=== PATIENT | male | born 1950 | race Caucasian/White ===

== ENCOUNTER 2017-05-28 01:17 | Emergency (ER) | payer MEDICARE ==
[2017-05-28] MEDS ORDERED: cloNIDine 0.1 MG TAB ONE (01:46)
== END 2017-05-28 02:20 | disposition home or self-care (01) ==
LOC: MADERS 01:17
DX: I10 Essential (primary) hypertension (principal); E66.9 Obesity, unspecified; E11.9 Type 2 diabetes mellitus without complications; E78.5 Hyperlipidemia, unspecified; Z79.4 Long term (current) use of insulin; Z79.82 Long term (current) use of aspirin; Z79.899 Other long term (current) drug therapy
CPT/HCPCS: 99283

== ENCOUNTER 2017-06-23 23:13 | Emergency (ER) | payer MEDICARE | END 2017-06-23 23:53 | disposition home or self-care (01) | LOC: MADERS 23:13 | DX: I10 Essential (primary) hypertension (principal); I49.9 Cardiac arrhythmia, unspecified; E11.9 Type 2 diabetes mellitus without complications; E78.5 Hyperlipidemia, unspecified; Z79.4 Long term (current) use of insulin; Z79.899 Other long term (current) drug therapy; Z79.82 Long term (current) use of aspirin | CPT/HCPCS: 99283 ==

== ENCOUNTER 2019-02-26 17:02 | Emergency (ER) | payer MEDICARE ==
--- NOTE | 2019-02-26 18:17 | RAD ---
CHEST TWO VIEWS: HISTORY: Fluid on lungs. COMPARISON: Real-time from 11/30/2018. FINDINGS: Heart size is mildly enlarged. Low grade edema. No pneumothorax. Small effusions. IMPRESSION: Findings of mildly decompensated congestive heart failure. POS: HOME
[2019-02-26 18:20] LABS: Band 6 % (5-11); Eosinophils 2 % (0-10); Hemoglobin 12.9 g/dL (14.0-18.0); Lymphocytes 16 % (21-51); MDiff Complete? YES; Mean Corpuscular HGB CONC 30.7 g/dL (32.0-36.0); Mean Corpuscular Hemoglobin 26.2 pg (27.0-31.0); Mean Corpuscular Volume 85.4 fL (78.0-98.0); Mean Platelet Volume 11.8 fL (7.4-10.4); Monocytes 6 % (0-10); Neutrophil 69 % (42-75); Platelet Count 165 thou/uL (130-400); Platelet Morphology Comment Appears Adequate; RBC Distribution Width 13.8 % (11.5-14.5); Red Blood Cell (RBC) Count 4.92 mill/uL (4.70-6.10); White Blood Cell (WBC) Count 9.2 thou/uL (4.8-10.8)
[2019-02-26 18:24] LABS: ALT (SGPT) 23 U/L (8-55); AST (SGOT) 16 U/L (5-34); Albumin 3.9 g/dL (3.4-4.8); Alkaline Phosphatase 84 U/L (40-110); Anion Gap 15 mmol/L (10-20); BUN (Urea Nitrogen) 15 mg/dL (8.4-25.7); Bilirubin, Total 0.4 mg/dL (0.2-1.2); Calc. Creatinine Clearance 0 mL/min (70-130); Carbon Dioxide 29 mmol/L (23-31); Chloride 100 mmol/L (98-107); Estimated GFR-MDRD 80; Glucose 224 mg/dL (80-115); Potassium 3.7 mmol/L (3.5-5.1); Protein, Total 6.9 g/dL (5.8-8.1); Sodium 140 mmol/L (136-145)
== END 2019-02-26 19:54 | disposition short-term general hospital (02) ==
LOC: MADERS 17:02
DX: J81.0 Acute pulmonary edema (principal); I49.9 Cardiac arrhythmia, unspecified; E11.9 Type 2 diabetes mellitus without complications; E78.5 Hyperlipidemia, unspecified; E78.00 Pure hypercholesterolemia, unspecified; I10 Essential (primary) hypertension; Z79.899 Other long term (current) drug therapy; Z79.4 Long term (current) use of insulin; Z79.82 Long term (current) use of aspirin
CPT/HCPCS: 71046; 80053; 83880; 84484; 85025; 93005; 94760

== ENCOUNTER 2019-06-11 22:27 | Emergency (ER) | payer MEDICARE ==
[2019-06-11] MEDS ORDERED: Cephalexin 500 MG CAP ONE (23:23)
[2019-06-11] MEDS ORDERED: Sulfameth/Trimethoprim DS 800-160mg TAB ONE (23:23)
== END 2019-06-11 23:40 | disposition home or self-care (01) ==
LOC: MADERS 22:27
DX: L02.411 Cutaneous abscess of right axilla (principal); I25.2 Old myocardial infarction; I48.91 Unspecified atrial fibrillation; E11.9 Type 2 diabetes mellitus without complications; E78.5 Hyperlipidemia, unspecified; E78.00 Pure hypercholesterolemia, unspecified; I10 Essential (primary) hypertension; I49.9 Cardiac arrhythmia, unspecified; Z79.4 Long term (current) use of insulin; Z79.899 Other long term (current) drug therapy; Z79.82 Long term (current) use of aspirin
CPT/HCPCS: 99282

== ENCOUNTER 2020-05-02 16:17 | Emergency (ER) | payer OTHER, MEDICARE ==
--- NOTE | 2020-05-02 17:43 | RAD ---
Exam:Right foot 3 views HISTORY: Trauma. Pain while walking. COMPARISON: None FINDINGS: Lisfranc alignment appears be maintained. No obvious fracture. There are degenerative valdez es involving the alignment of the second, third and fourth metatarsal with respect to the middle and lateral cuneiform. Obvious fracture is not appreciated. However, limited evaluation of the articu lation of the mid foot on the AP and oblique projection. There does appear to be soft tissue swelling. If there is pain or point tenderness, CT. Minimal atherosclerosis is identified Chronic changes involving the calcaneus. IMPRESSION: Limited evaluation of the midfoot, specifically the articulation of the second through fo urth metatarsals with the associated cuneiform bones. Further evaluation with CT is recommended if clinically warranted.
--- NOTE | 2020-05-02 18:35 | CT ---
CT RIGHT FOOT: 05/02/20 PROVIDED CLINICAL HISTORY: Right foot pain. FINDINGS: Evaluation is mildly limited by patient motion in the region of the Lisfranc articulation. There is n o evidence for fracture or dislocation. Degenerative changes are seen. Prominent vascular calcificati ons are noted. Alignment appears anatomic. Joint spaces appear preserved. There is nonspecific, nonci rcumscribed fluid density within the subcutaneous adipose layer about the visualized distal foreleg a nd dorsum of the foot. Correlate with concerns for cellulitis. IMPRESSION: No evidence for fracture. POS: [facility]
== END 2020-05-02 19:00 | disposition home or self-care (01) ==
LOC: MADERS 16:17
DX: S93.601A Unspecified sprain of right foot, initial encounter (principal); I25.2 Old myocardial infarction; E11.9 Type 2 diabetes mellitus without complications; E78.5 Hyperlipidemia, unspecified; E78.00 Pure hypercholesterolemia, unspecified; I10 Essential (primary) hypertension; Z79.4 Long term (current) use of insulin; Z79.899 Other long term (current) drug therapy; X58.XXXA Exposure to other specified factors, initial encounter

== ENCOUNTER 2024-07-12 14:26 | Inpatient (IN) | payer MEDICARE ==
[2024-07-12] MEDS ORDERED: Gabapentin 300 MG CAP PO PRN (22:58)
[2024-07-12] MEDS ORDERED: Phenol 177 ML BOT PO PRN (22:58)
[2024-07-12] MEDS ORDERED: Cyclobenzaprine 10 MG TAB PO PRN (22:58)
[2024-07-12] MEDS ORDERED: Glucagon 1 MG/ML KIT IM PRN ×2 (23:07→23:08)
[2024-07-12] MEDS ORDERED: Dextrose 50% Abboject 50 ML SYRINGE SLOW IVP PRN ×2 (23:07→23:08)
[2024-07-13] MEDS ORDERED: Loratadine 10 MG TAB PO PRN (00:29)
[2024-07-13] MEDS ORDERED: Albuterol 200 PUFF (6.7GM INHALER) INH PRN (00:33)
[2024-07-13] MEDS ORDERED: Fluticasone Propionate Nasal Spray 16 gm Bottle NASAL PRN (00:35)
[2024-07-13 01:04] VITALS: BMI 38.1
[2024-07-13] MEDS: Aspirin 81 mg Enteric Coated Tablet PO SCH (08:38)
[2024-07-13] MEDS: Spironolactone 25 MG TAB PO SCH (08:38)
[2024-07-13] MEDS: Empagliflozin 25 MG TAB PO SCH (08:39)
[2024-07-13] MEDS: Cholecalciferol 1,000 UNITS (25 MCG) TAB PO SCH (08:39)
[2024-07-13] MEDS: Carvedilol 6.25 MG TAB PO SCH (08:39)
[2024-07-13] MEDS: Ferrous Sulfate 325 MG TAB PO SCH (08:40)
[2024-07-13] MEDS: metFORMIN 500 MG TAB PO SCH (08:40)
[2024-07-13] MEDS: Tamsulosin HCl 0.4 MG CAP PO SCH (08:40)
[2024-07-13] MEDS: Amoxicillin/Potassium Clav 875 MG TAB PO SCH (08:40)
[2024-07-13] MEDS: Amiodarone 200 MG TAB PO SCH (08:41)
[2024-07-13] MEDS: Amlodipine 5 MG TAB PO SCH (08:41)
[2024-07-13] MEDS: Furosemide 40 MG TAB PO SCH (08:42)
[2024-07-13] MEDS: Cyanocobalamin (Vitamin B-12) 1,000 MCG TAB PO SCH (08:42)
[2024-07-13] MEDS: FLU (Fluad Triv) TS24-25 (65UP)/MF59C/PF 45 MCG/0.5 ML Syringe IM ONE (08:42)
[2024-07-13] MEDS: Lantus 1000 UNITS/10 ML VIAL SC SCH (08:43)
[2024-07-13] MEDS: Timolol 0.5% Ophth Soln 5 ml Bottle EA EYE SCH (08:46)
[2024-07-13] MEDS: Multivitamin W/ Minerals 1 TAB PO SCH (08:46)
[2024-07-13] MEDS: Potassium Chloride 10 MEQ TAB PO SCH (08:46)
[2024-07-13] MEDS: Insulin Regular, Human 100 UNIT/ML 10 ML VIAL SC PRN (08:47)
[2024-07-13] MEDS: Acetaminophen/Codeine 30-300mg Tablet PO PRN (19:52)
[2024-07-13] MEDS: Atorvastatin Calcium 40 MG TAB PO SCH (19:59)
[2024-07-13] MEDS: Magnesium Oxide 400 MG TAB PO SCH (20:00)
[2024-07-13] MEDS: Latanoprost 0.005% Ophth Soln 2.5 ml Bottle EA EYE SCH (21:08)
[2024-07-14] MEDS: Spironolactone 25 MG TAB PO SCH (15:22)
[2024-07-14] MEDS: Carvedilol 6.25 MG TAB PO SCH (20:55)
[2024-07-15] MEDS: Amlodipine 5 MG TAB PO SCH (08:46)
[2024-07-15] MEDS: Spironolactone 25 MG TAB PO SCH (08:47)
[2024-07-15] MEDS: Apixaban 5 MG TAB PO SCH (08:58)
[2024-07-15 09:26] LABS: #Basophils 0.1 thou/uL (0.0-0.2); #Eosinophils 0.2 thou/uL (0.0-0.7); #Lymphocytes 0.7 thou/uL (1.20-3.40); #Monocytes 0.4 thou/uL (0.11-0.59); #Neutrophils 6.1 thou/uL (1.40-6.50); %Basophils 0.8 % (0.0-1.0); %Eosinophils 2.7 % (0.0-10.0); %Lymphocytes 9.5 % (21.0-51.0); %Monocytes 5.5 % (0.0-10.0); %Neutrophils 81.5 % (42.0-75.0); Hematocrit 25.5 % (42.0-52.0); Hemoglobin 8.3 g/dL (14.0-18.0); Mean Corpuscular HGB CONC 32.5 g/dL (32.0-36.0); Mean Corpuscular Volume 92.4 fl (78.0-98.0); Mean Platelet Volume 7.8 fL (7.4-10.4); Platelet Count 282 10x3/uL (130-400); Red Blood Cell (RBC) Count 2.76 mill/uL (4.70-6.10); White Blood Cell (WBC) Count 7.5 10x3/uL (4.8-10.8)
[2024-07-15 09:36] LABS: Anion Gap 18 mmol/L (10-20); BUN (Urea Nitrogen) 36 mg/dL (8.4-25.7); Calc. Creatinine Clearance 100 mL/min (70-130); Calcium 9.4 mg/dL (7.8-10.44); Carbon Dioxide 25 mmol/L (23-31); Chloride 94 mmol/L (98-107); Estimated GFR 61; Glucose 190 mg/dL (83-110); Potassium 4.4 mmol/L (3.5-5.1); Sodium 133 mmol/L (136-145)
[2024-07-15] MEDS ORDERED: Lantiseptic Ointment 130 GM JAR TOP PRN ×2 (16:38→21:00)
[2024-07-15] MEDS ORDERED: Simethicone Chewable 80 MG TAB PO PRN (20:23)
[2024-07-15] MEDS: Insulin Regular, Human 100 UNIT/ML 10 ML VIAL SC PRN (20:56)
[2024-07-15] MEDS: Lantiseptic Ointment 130 GM JAR TOP SCH (21:09)
[2024-07-16] MEDS: Acetaminophen ER (8hr) 650 MG TAB PO PRN (21:27)
[2024-07-17] MEDS: Cholecalciferol (Vitamin D3) 5,000 UNITS CAPSULE PO SCH (21:32)
[2024-07-22] MEDS: Polyethylene Glycol 3350 17 GM Packet PO SCH (09:02)
[2024-07-24] MEDS: Gabapentin 300 MG CAP PO SCH (20:33)
[2024-07-25 05:28] LABS: Band 2 % (5-11); Eosinophils 3 % (0-10); Hematocrit 28.7 % (42.0-52.0); Hemoglobin 8.9 g/dL (14.0-18.0); Lymphocytes 12 % (21-51); MDiff Complete? YES; Mean Corpuscular HGB CONC 31.1 g/dL (32.0-36.0); Mean Corpuscular Hemoglobin 28.7 pg (27.0-31.0); Mean Corpuscular Volume 92.5 fl (78.0-98.0); Mean Platelet Volume 8.4 fL (7.4-10.4); Monocytes 7 % (0-10); Neutrophil 76 % (42-75); Platelet Count 340 10x3/uL (130-400); RBC Distribution Width 18.1 % (11.5-14.5); White Blood Cell (WBC) Count 7.7 10x3/uL (4.8-10.8)
[2024-07-25] MEDS: Empagliflozin 25 MG TAB PO SCH (08:42)
[2024-07-27 05:20] LABS: Anion Gap 18 mmol/L (10-20); BUN (Urea Nitrogen) 38 mg/dL (8.4-25.7); Calc. Creatinine Clearance 82 mL/min (70-130); Carbon Dioxide 21 mmol/L (23-31); Chloride 99 mmol/L (98-107); Estimated GFR 48; Glucose 173 mg/dL (83-110); Potassium 4.5 mmol/L (3.5-5.1); Sodium 133 mmol/L (136-145)
[2024-07-27] MEDS: Docusate 100 MG CAP PO SCH (10:56)
[2024-07-28] MEDS: Docusate 100 MG CAP PO SCH (08:21)
[2024-07-29 18:10] VITALS: BMI 38.5
[2024-07-31 05:13] LABS: Hematocrit 30.4 % (42.0-52.0); Hemoglobin 9.4 g/dL (14.0-18.0); Mean Corpuscular HGB CONC 30.9 g/dL (32.0-36.0); Mean Corpuscular Hemoglobin 28.5 pg (27.0-31.0); Mean Corpuscular Volume 92.3 fl (78.0-98.0); Mean Platelet Volume 9.7 fL (7.4-10.4); Platelet Count 204 10x3/uL (130-400); RBC Distribution Width 17.6 % (11.5-14.5); Red Blood Cell (RBC) Count 3.29 mill/uL (4.70-6.10); White Blood Cell (WBC) Count 8.1 10x3/uL (4.8-10.8)
[2024-07-31 10:39] LABS: Anion Gap 15 mmol/L (10-20); BUN (Urea Nitrogen) 26 mg/dL (8.4-25.7); Calc. Creatinine Clearance 113 mL/min (70-130); Carbon Dioxide 22 mmol/L (23-31); Chloride 99 mmol/L (98-107); Estimated GFR 70; Glucose 116 mg/dL (83-110); Potassium 4.6 mmol/L (3.5-5.1); Sodium 131 mmol/L (136-145)
[2024-08-02 12:57] LABS: Bilirubin Negative (Negative); Blood, Urine Moderate (Negative); Clarity Clear (Clear); Glucose, Urine (Dipstick) >=1000 mg/dL (Negative); Ketone, Urine Negative (Negative); Leukocyte Small (Negative); Nitrite Positive (Negative); Protein, Urine (Dipstick) 30 mg/dL (Neg-Trace); Specific Gravity, Urine 1.015 (1.005-1.030); Urobilinogen 0.2 mg/dL (Less than 2); pH, Urine 5.5 (5.0-9.0)
[2024-08-02 13:13] LABS: Squamous Epithelial 0-3 HPF (0-3)
[2024-08-02 13:14] LABS: Bacteria/HPF 2+ HPF (None Seen)
[2024-08-02] MEDS: Sulfameth/Trimethoprim DS 800-160mg TAB PO SCH (21:48)
[2024-08-02] MEDS: Nystatin Cream 15 GM TUBE TOP PRN (21:51)
[2024-08-03] MEDS: Nystatin Cream 15 GM TUBE TOP SCH (09:21)
[2024-08-03] MEDS: Ondansetron ODT 4 MG TAB PO PRN (13:15)
[2024-08-05 05:25] LABS: Hematocrit 29.8 % (42.0-52.0); Hemoglobin 9.3 g/dL (14.0-18.0); Platelet Count 164 10x3/uL (130-400)
[2024-08-05] MEDS: Phenazopyridine HCl 95 MG TAB PO SCH (20:46)
[2024-08-08 05:41] LABS: ALT (SGPT) 31 U/L (Less than 45); AST (SGOT) 26 U/L (11-34); Albumin 2.8 g/dL (3.1-4.5); Alkaline Phosphatase 92 U/L (40-110); Anion Gap 18 mmol/L (10-20); BUN (Urea Nitrogen) 40 mg/dL (8.4-25.7); Bilirubin, Total 0.3 mg/dL (0.3-1.2); Calc. Creatinine Clearance 67 mL/min (70-130); Calcium 9.2 mg/dL (7.8-10.44); Carbon Dioxide 20 mmol/L (23-31); Chloride 97 mmol/L (98-107); Estimated GFR 37; Globulin 3.8 g/dL (2.4-3.5); Glucose 162 mg/dL (83-110); Potassium 4.8 mmol/L (3.5-5.1); Protein, Total 6.6 g/dL (5.8-8.1); Sodium 130 mmol/L (136-145)
[2024-08-08] MEDS: Meclizine HCl 25 MG TAB PO SCH (08:36)
[2024-08-08] MEDS: Lantiseptic Ointment 130 GM JAR TOP PRN (08:42)
[2024-08-09 12:45] VITALS: BP 118/68; TEMP 98.7
== END 2024-08-09 12:45 | DRG 945 ==
LOC: MADMS 07-13 00:03
PROVIDERS: ADMIT Family Medicine; ATTEND Family Medicine
PROC: 5A09457 Assistance with Respiratory Ventilation, 24-96 Consecutive Hours, Continuous Positive Airway Pressure (ICD-10-PCS; principal; 2024-07-13)
PROC: F07Z4ZZ Wheelchair Mobility Treatment (ICD-10-PCS; 2024-07-13)
PROC: F08Z0ZZ Bathing/Showering Techniques Treatment (ICD-10-PCS; 2024-07-13)
DX: R53.81 Other malaise (principal); I50.42 Chronic combined systolic (congestive) and diastolic (congestive) heart failure; N39.0 Urinary tract infection, site not specified; E78.5 Hyperlipidemia, unspecified; I25.5 Ischemic cardiomyopathy; I25.10 Atherosclerotic heart disease of native coronary artery without angina pectoris; I11.9 Hypertensive heart disease without heart failure; E11.628 Type 2 diabetes mellitus with other skin complications; E66.01 Morbid (severe) obesity due to excess calories; R26.9 Unspecified abnormalities of gait and mobility; D64.9 Anemia, unspecified; E11.51 Type 2 diabetes mellitus with diabetic peripheral angiopathy without gangrene; I48.0 Paroxysmal atrial fibrillation; G47.33 Obstructive sleep apnea (adult) (pediatric); N18.2 Chronic kidney disease, stage 2 (mild); Z99.81 Dependence on supplemental oxygen; Z98.890 Other specified postprocedural states; Z85.820 Personal history of malignant melanoma of skin; Z82.49 Family history of ischemic heart disease and other diseases of the circulatory system; Z83.6 Family history of other diseases of the respiratory system; Z89.519 Acquired absence of unspecified leg below knee; Z79.4 Long term (current) use of insulin; Z68.36 Body mass index [BMI] 36.0-36.9, adult; Z95.1 Presence of aortocoronary bypass graft; Z95.810 Presence of automatic (implantable) cardiac defibrillator; Z88.8 Allergy status to other drugs, medicaments and biological substances; Z88.1 Allergy status to other antibiotic agents; Z91.013 Allergy to seafood
CPT/HCPCS: 36415; 36416; 80048; 80053; 81001; 85014; 85018; 85025; 85027; 85049; 87077; 87086; 87186; J1815; Q0162

== ENCOUNTER 2025-02-21 21:11 | Emergency (ER) | payer MEDICARE ==
[2025-02-21 22:10] LABS: Glucose, Urine (Dipstick) >=1000 mg/dL (Negative); Leukocyte Negative (Negative); Protein, Urine (Dipstick) 100 mg/dL (Neg-Trace); Specific Gravity, Urine 1.010 (1.005-1.030)
[2025-02-21 22:12] LABS: RBC/HPF Greater than 50 HPF (0-3)
[2025-02-21 22:13] LABS: Bacteria/HPF Rare-Few HPF (None Seen); CAUTI Indications for Culture Pelvic or flank pain; Urine Culture Reflex No No
[2025-02-21] MEDS ORDERED: Ciprofloxacin 500 MG TAB ONE (22:20)
== END 2025-02-21 22:35 | disposition home or self-care (01) ==
LOC: MADERS 21:11
DX: N30.01 Acute cystitis with hematuria (principal); I13.0 Hypertensive heart and chronic kidney disease with heart failure and stage 1 through stage 4 chronic kidney disease, or unspecified chronic kidney disease; I50.9 Heart failure, unspecified; N18.2 Chronic kidney disease, stage 2 (mild); E11.22 Type 2 diabetes mellitus with diabetic chronic kidney disease; E66.9 Obesity, unspecified; Z95.1 Presence of aortocoronary bypass graft; Z95.0 Presence of cardiac pacemaker
CPT/HCPCS: 81001; 87086; 99283